=== PATIENT | male | born 1955 | race Hispanic/Latino ===

== ENCOUNTER 2017-10-16 12:13 | Inpatient (IN) | payer OTHER ==
[2017-10-16 12:15] VITALS: BMI 25.1
--- NOTE | 2017-10-16 13:05 | RAD ---
HISTORY: Code Stroke COMPARISON: No prior. FINDINGS: LUNGS: No active pulmonary disease. PLEURA: No significant pleural effusion identified, no pneumothorax apparent. CARDIOVASCULAR: Normal. OSSEOUS STRUCTURES: Degenerative changes. VISUALIZED UPPER ABDOMEN: Normal. OTHER FINDINGS: None. IMPRESSION: No active disease.
--- NOTE | 2017-10-16 13:06 | ED PDOC ---
HPI: Neurologic - General Time Seen by Provider: 10/16/17 12:24 Chief Complaint (Provider): Slurred speech Source: patient, family - History of Present Illness Allergies/Adverse Reactions: Allergies No Known Allergies Allergy (Verified 10/16/17 12:35) Additional Complaint(s): Pt states he had slurred speech for 3-5 seconds while talking on the phone today , resolved spontaneously. Denies MATTHEWS, paresthesias, weakness, visual changes, incontinence. NIHSS Stroke Scale - Date/Time Evaluation Performed When Was NIHSS Performed: Baseline - How Severe is the Stroke Level of Consciousness: 0=Alert LOC to Questions: 0=Both comments correct LOC to commands: 0=Obeys both correctly Best Gaze: 0=Normal Visual: 0=No visual loss Facial: 0=Normal Motor Arm - Left: 0=No drift Motor Leg - Left: 0=No drift Motor Leg - Right: 0=No drift Limb Ataxia: 0=Absent Sensory: 0=Normal Best Language: 0=No aphasia Dysarthia: 0=Normal articulation Extinction & Inattention (Neglect): 0=Normal, no object rTPA Inclusion/Exclusion - Refusal of Treatment Patient Refused Treatment: No - Inclusion Criteria for Altepase Patient is 18 years or Older: Yes The Clinical Diagnosis of Ischemic Stroke That is Causing a Potentially Disabling Neurological Deficit: No Time of Onset is Well Established to be Less Than 270 Minute Before Treatment Would Begin: No Risk/Benefit Discussed With Patient/Family Member Present: No - Warning to TPA With Conditions Condition: Rapid Improvement Past Medical History Reviewed: Nursing Documentation, Vital Signs Vital Signs: Last Vital Signs Temp 97.3 F L 10/16/17 12:15 Pulse 68 10/16/17 12:15 Resp 16 10/16/17 12:15 BP 144/95 H 10/16/17 12:15 Pulse Ox 96 10/16/17 12:15 - Medical History PMH: HTN - Family History Family History: States: Unknown Family Hx - Living Arrangements Living Arrangements: With Family - Social History Current smoker - smoking cessation education provided: No Alcohol: None - Allergies Allergies/Adverse Reactions: Allergies Allergy/AdvReac Type Severity Reaction Status Date / Time No Known Allergies Allergy Verified 10/16/17 12:35 Review of Systems Constitutional: Negative for: Fever Eyes: Negative for: Vision Change Cardiovascular: Negative for: Chest Pain, Palpitations Respiratory: Negative for: Cough, Shortness of Breath Gastrointestinal: Negative for: Nausea, Vomiting, Abdominal Pain, Diarrhea Musculoskeletal: Negative for: Neck Pain Skin: Negative for: Rash, Lesions Neurological: Positive for: Change in Speech. Negative for: Weakness, Numbness , Incoordination, Confusion, Seizures, Altered Mental Status, Headache, Dizziness Physical Exam - Reviewed Nursing Documentation Reviewed: Yes Vital Signs Reviewed: Yes - Physical Exam Appears: Positive for: Well, No Acute Distress Head Exam: Positive for: ATRAUMATIC, NORMAL INSPECTION Skin: Positive for: Normal Color, Warm, Dry Eye Exam: Positive for: Normal appearance, EOMI, PERRL Neck: Positive for: Normal, Painless ROM, Supple Cardiovascular/Chest: Positive for: Regular Rate, Rhythm Respiratory: Positive for: Normal Breath Sounds. Negative for: Rales, Rhonchi, Wheezing Extremity: Positive for: Normal ROM Neurologic/Psych: Positive for: Alert, wage hand II-XII, Oriented, Cerebellar Tests ( WNL). Negative for: Motor/Sensory Deficits, Aphasia, Facial Droop - Laboratory Results Result Diagrams: 10/16/17 13:45 10/16/17 13:45 - ECG O2 Sat by Pulse Oximetry: 96 Medical Decision Making Medical Decision Makin yo with episode of slurred speech. - labs - EKG - CT head - CXR - Neuro consult Accession No. : [id number] Patient Name / ID : TATYANA Vivar / [id number] Exam Date : 10/16/2017 12:56:18 ( Approved ) Study Comment : Sex / Age : M / 62Y Creator : Olegario Carcamo MD Dictator : Olegario Carcamo MD Rug Dyer : Block And Case Maker : Olegario Carcamo MD Approver2 : Report Date : 10/16/2017 13:14:37 My Comment : PROCEDURE: CT HEAD WITHOUT CONTRAST. HISTORY: TIA, slurred speech COMPARISON: None available. TECHNIQUE: Axial computed tomography images were obtained through the head/brain without intravenous contrast. Radiation dose: Total exam DLP = 1077.3 mGy-cm. This CT exam was performed using one or more of the following dose reduction techniques: Automated exposure control, adjustment of the mA and/or kV according to patient size, and/or use of iterative reconstruction technique. FINDINGS: HEMORRHAGE: No intracranial hemorrhage. BRAIN: No mass effect or edema. No atrophy or chronic microvascular ischemic changes. VENTRICLES: Unremarkable. No hydrocephalus. CALVARIUM: Unremarkable. PARANASAL SINUSES: Unremarkable as visualized. No significant inflammatory changes. MASTOID AIR CELLS: Unremarkable as visualized. No inflammatory changes. OTHER FINDINGS: None. IMPRESSION: No acute intracranial pathology.
--- NOTE | 2017-10-16 13:16 | CT ---
PROCEDURE: CT HEAD WITHOUT CONTRAST. HISTORY: TIA, slurred speech COMPARISON: None available. TECHNIQUE: Axial computed tomography images were obtained through the head/brain without intravenous contrast. Radiation dose: Total exam DLP = 1077.3 mGy-cm. This CT exam was performed using one or more of the following dose reduction techniques: Automated exposure control, adjustment of the mA and/or kV according to patient size, and/or use of iterative reconstruction technique. FINDINGS: HEMORRHAGE: No intracranial hemorrhage. BRAIN: No mass effect or edema. No atrophy or chronic microvascular ischemic changes. VENTRICLES: Unremarkable. No hydrocephalus. CALVARIUM: Unremarkable. PARANASAL SINUSES: Unremarkable as visualized. No significant inflammatory changes. MASTOID AIR CELLS: Unremarkable as visualized. No inflammatory changes. OTHER FINDINGS: None. IMPRESSION: No acute intracranial pathology.
[2017-10-16 13:54] LABS: BASO % 0.7 % (0.0-2.0); EOS # 0.1 K/uL (0.0-0.7); EOS % 1.3 % (0.0-4.0); HEMOGLOBIN 16.7 g/dL (12.0-18.0); LYMPH # 0.8 K/uL (1.0-4.3); LYMPH % 12.6 % (20.0-40.0); MEAN CORPUSCULAR HEMOGLOBIN 32.3 pg (27.0-31.0); MEAN CORPUSCULAR HGB CONC 34.4 g/dL (33.0-37.0); MEAN PLATELET VOLUME 8.3 fl (7.2-11.7); MONO # 0.5 K/uL (0.0-0.8); MONO % 8.3 % (0.0-10.0); NEUT # 4.8 K/uL (1.8-7.0); NEUT % 77.1 % (50.0-75.0); NRBC % 0.1 % (0.0-0.0); RBC 5.17 Mil/uL (4.40-5.90); WHITE BLOOD COUNT 6.3 K/uL (4.8-10.8)
[2017-10-16 13:59] LABS: PARTIAL THROMBOPLASTIN TIME 30.9 Seconds (25.6-37.1); PROTHROMBIN TIME 10.9 Seconds (9.8-13.1)
[2017-10-16 14:01] LABS: ALB/GLOB RATIO 1.6 (1.0-2.1); ALBUMIN 4.4 g/dL (3.5-5.0); ALT/SGPT 34 U/L (21-72); AST/SGOT 25 U/L (17-59); BLOOD UREA NITROGEN 19 mg/dl (9-20); CALCIUM 9.8 mg/dL (8.4-10.2); GFR AFRICAN-AMERICAN > 60; GFR NON-AFRICAN AMERICAN > 60; HDL CHOLESTEROL 53 MG/DL (30-70)
[2017-10-16 14:12] LABS: LDL CHOLESTEROL 113 mg/dL (0-129)
--- NOTE | 2017-10-16 16:03 | CP.PCM.HP ---
<SigridLucia - Last Filed: 10/16/17 18:27> History of Present Illness - History of Present Illness History of Present Illness: Mr. Willam Markham is a 62 yo M with a past medical history of hypertension, irritable bowel syndrome, and enlarged prostate who presented to the emergency room following an episode of slurred speech that lasted about 5 seconds, after which his speech returned to normal. He was speaking on the phone when this occurred and was sitting in a chair. He denies any other symptoms occurring at the same time such as headache, vision changes, one sided or bilateral weakness , or paralysis. At the time of the evaluation in the emergency room, he reported feeling tired but otherwise had no complaints. Pt's , present in the room, states that she has noticed that sometimes his hands shake if he hasn't had food in several hours. PMD: Dr. Real Kiran Med hx: hypertension, enlarged prostate (BPH?), irritable bowel syndrome (sees private GI) Surg hx: hernia repair about 7 yrs ago Fam hx: father had possible minor stroke (pt unsure), paternal grandmother from [place] Social hx: never smoker, denies excessive alcohol intake (1 drink w/ dinner or before bed sometimes), denies drug use Medications: losartan 50mg, OTC saw jeanie Allergies: nkda ED course: - CT head - no acute pathology - CXR- no active disease - EKG- sinus bradycardia at 58 bpm - Neuro consult- Dr. Medrano - Aspirin 325 mg - CBC, CMP unremarkable - HbA1c - pending Present on Admission - Present on Admission Any Indicators Present on Admission: No Review of Systems - Constitutional Constitutional: absent: Chills, Headache, Lethargy, Malaise, Night Sweats - EENT Eyes: absent: Blind Spots, Blurred Vision, Change in Vision Ears: absent: Decreased Hearing, Disequilibrium Nose/Mouth/Throat: absent: Dysphagia - Cardiovascular Cardiovascular: absent: Chest Pain, Dyspnea on Exertion, Leg Edema, Lightheadedness - Respiratory Respiratory: absent: Cough, Dyspnea - Gastrointestinal Gastrointestinal: absent: Abdominal Pain, Change in Bowel Habits, Constipation, Diarrhea - Genitourinary Genitourinary: Difficulty Urinating (mild; due to enlarged prostate). absent: Change in Urinary Stream, Dysuria, Urinary Frequency, Urinary Urgency - Musculoskeletal Musculoskeletal: absent: Abnormal Gait, Arthralgias, Muscle Weakness, Myalgias, Numbness, Tingling - Neurological Neurological: Abnormal Speech (5 seconds of slurred speech as per HPI; otherwise negative). absent: Abnormal Gait, Abnormal Hearing, Abnormal Movements, Disequilibrium, Dizziness, Numbness, Focal Weakness, Loss of Vision, Paresthesias, Sensory Deficit - Endocrine Endocrine: absent: Polyphagia, Polyuria Past Patient History - Infectious Disease Hx of Infectious Diseases: None - Tetanus Immunizations Tetanus Immunization: Unknown - Past Medical History & Family History Past Medical History?: Yes Pertinent Family History: father with possible stroke; pt unsure - Past Social History Smoking Status: Never Smoked Alcohol: Occasional Drugs: Denies Home Situation {Lives}: With Family - CARDIAC Hx Cardiac Disorders: Yes Hx Hypertension: Yes - PULMONARY Hx Respiratory Disorders: No - NEUROLOGICAL Hx Neurological Disorder: No - HEENT Hx HEENT Problems: No - RENAL Hx Chronic Kidney Disease: No - ENDOCRINE/METABOLIC Hx Endocrine Disorders: No - HEMATOLOGICAL/ONCOLOGICAL Hx Blood Disorders: No - INTEGUMENTARY Hx Dermatological Problems: No - MUSCULOSKELETAL/RHEUMATOLOGICAL Hx Musculoskeletal Disorders: No - GASTROINTESTINAL Hx Gastrointestinal Disorders: Yes Hx Irritable Bowel: Yes (irritable bowel syndrome) - GENITOURINARY/GYNECOLOGICAL Hx Genitourinary Disorders: Yes Hx Prostate Problems: Yes (enlarged prostate) - PSYCHIATRIC Hx Psychophysiologic Disorder: No - SURGICAL HISTORY Hx Surgeries: Yes Hx Herniorrhaphy: Yes Meds Allergies/Adverse Reactions: Allergies Allergy/AdvReac Type Severity Reaction Status Date / Time No Known Allergies Allergy Verified 10/16/17 12:35 Physical Exam - Constitutional Appears: Non-toxic, No Acute Distress - Head Exam Head Exam: NORMAL INSPECTION - Eye Exam Eye Exam: EOMI, Normal appearance, PERRL - ENT Exam ENT Exam: Mucous Membranes Moist, Normal Exam, Normal Oropharynx - Neck Exam Neck exam: Positive for: Full Rom, Normal Inspection. Negative for: Lymphadenopathy, Tenderness - Respiratory Exam Respiratory Exam: Clear to Auscultation Bilateral, NORMAL BREATHING PATTERN. absent: Wheezes, Respiratory Distress - Cardiovascular Exam Cardiovascular Exam: REGULAR RHYTHM, +S1, +S2 - GI/Abdominal Exam GI & Abdominal Exam: Normal Bowel Sounds, Soft. absent: Mass, Tenderness - Extremities Exam Extremities exam: Negative for: calf tenderness - Back Exam Back exam: NORMAL INSPECTION - Neurological Exam Neurological exam: Alert, CN II-XII Intact (to individual testing), Normal Gait , Oriented x3 Additional comments: no focal motor or sensory neural deficits strength 5/5 in all 4 extremities cerebellar function tests wnl (finger to nose, heel to pisano) - Psychiatric Exam Psychiatric exam: Normal Affect, Normal Mood - Skin Skin Exam: Dry, Intact, Normal Color, Warm Results - Vital Signs Recent Vital Signs: Last Vital Signs Temp 98 F 10/16/17 15:23 Pulse 78 10/16/17 15:23 Resp 18 10/16/17 15:23 BP 116/83 10/16/17 15:23 Pulse Ox 99 10/16/17 15:23 - Labs Result Diagrams: 10/16/17 13:45 10/16/17 13:45 Labs: Laboratory Results - last 24 hr 10/16/17 10/16/17 10/16/17 12:28 13:45 13:45 WBC 6.3 RBC 5.17 Hgb 16.7 Hct 48.6 MCV 94.0 MCH 32.3 H MCHC 34.4 RDW 13.0 Plt Count 191 MPV 8.3 Neut % (Auto) 77.1 H Lymph % (Auto) 12.6 L [place] % (Auto) 8.3 Eos % (Auto) 1.3 Baso % (Auto) 0.7 Neut # (Auto) 4.8 Lymph # (Auto) 0.8 L [place] # (Auto) 0.5 Eos # (Auto) 0.1 Baso # (Auto) 0.0 PT INR APTT Sodium 142 Potassium 4.3 Chloride 99 Carbon Dioxide 29 Anion Gap 18 BUN 19 Creatinine 0.8 Est GFR ( Amer) > 60 Est GFR (Non-Af Amer) > 60 POC Glucose (mg/dL) 116 H Random Glucose 93 Calcium 9.8 Total Bilirubin 2.0 H AST 25 ALT 34 Alkaline Phosphatase 50 Troponin I < 0.0120 Total Protein 7.3 Albumin 4.4 Globulin 2.8 Albumin/Globulin Ratio 1.6 Triglycerides 122 Cholesterol 188 LDL Cholesterol Direct 113 HDL Cholesterol 53 Blood Type Antibody Screen BBK History Checked 10/16/17 10/16/17 13:45 13:45 WBC RBC Hgb Hct MCV MCH MCHC RDW Plt Count MPV Neut % (Auto) Lymph % (Auto) [place] % (Auto) Eos % (Auto) Baso % (Auto) Neut # (Auto) Lymph # (Auto) [place] # (Auto) Eos # (Auto) Baso # (Auto) PT 10.9 INR 1.0 APTT 30.9 Sodium Potassium Chloride Carbon Dioxide Anion Gap BUN Creatinine Est GFR ( Amer) Est GFR (Non-Af Amer) POC Glucose (mg/dL) Random Glucose Calcium Total Bilirubin AST ALT Alkaline Phosphatase Troponin I Total Protein Albumin Globulin Albumin/Globulin Ratio Triglycerides Cholesterol LDL Cholesterol Direct HDL Cholesterol Blood Type B POSITIVE Antibody Screen Negative BBK History Checked No verified bt Assessment & Plan - Assessment and Plan (Free Text) Assessment: 62 yo M with PMH htn, enlarged prostate who is admitted due to transient ischemic attack. Plan: # Transient Ischemic Attack - ABCD2 score 3; low risk but consider neuro consult - Head CT: no acute pathology - Neurology consult: Dr. Medrano - Aspirin 81 mg daily - Lipitor 20 mg daily; restart home med omega-3 # Hypertension - Restart home meds, losartan 50mg daily - Monitor BP # Enlarged prostate - Hold saw palmetto due to increased risk of bleeding and pt receiving lovenox and aspirin while inpt # DVT prophylaxis - Lovenox 40 mg SC daily - Date & Time Date: 10/16/17 Time: 17:00 <Satinder Kiran - Last Filed: 10/17/17 06:50> Results - Vital Signs Recent Vital Signs: Last Vital Signs Temp 97.3 F L 10/17/17 05:00 Pulse 48 L 10/17/17 05:00 Resp 18 10/17/17 05:00 BP 123/78 10/17/17 05:00 Pulse Ox 97 10/17/17 05:00 - Labs Result Diagrams: 10/16/17 13:45 10/16/17 13:45 Labs: Laboratory Results - last 24 hr 10/16/17 10/16/17 10/16/17 12:28 13:45 13:45 WBC 6.3 RBC 5.17 Hgb 16.7 Hct 48.6 MCV 94.0 MCH 32.3 H MCHC 34.4 RDW 13.0 Plt Count 191 MPV 8.3 Neut % (Auto) 77.1 H Lymph % (Auto) 12.6 L [place] % (Auto) 8.3 Eos % (Auto) 1.3 Baso % (Auto) 0.7 Neut # (Auto) 4.8 Lymph # (Auto) 0.8 L [place] # (Auto) 0.5 Eos # (Auto) 0.1 Baso # (Auto) 0.0 PT INR APTT Sodium 142 Potassium 4.3 Chloride 99 Carbon Dioxide 29 Anion Gap 18 BUN 19 Creatinine 0.8 Est GFR ( Amer) > 60 Est GFR (Non-Af Amer) > 60 POC Glucose (mg/dL) 116 H Random Glucose 93 Hemoglobin A1c Calcium 9.8 Total Bilirubin 2.0 H AST 25 ALT 34 Alkaline Phosphatase 50 Troponin I < 0.0120 Total Protein 7.3 Albumin 4.4 Globulin 2.8 Albumin/Globulin Ratio 1.6 Triglycerides 122 Cholesterol 188 LDL Cholesterol Direct 113 HDL Cholesterol 53 Blood Type Blood Type Confirm Antibody Screen BBK History Checked 10/16/17 10/16/17 10/16/17 13:45 13:45 13:45 WBC RBC Hgb Hct MCV MCH MCHC RDW Plt Count MPV Neut % (Auto) Lymph % (Auto) [place] % (Auto) Eos % (Auto) Baso % (Auto) Neut # (Auto) Lymph # (Auto) [place] # (Auto) Eos # (Auto) Baso # (Auto) PT 10.9 INR 1.0 APTT 30.9 Sodium Potassium Chloride Carbon Dioxide Anion Gap BUN Creatinine Est GFR ( Amer) Est GFR (Non-Af Amer) POC Glucose (mg/dL) Random Glucose Hemoglobin A1c 5.4 Calcium Total Bilirubin AST ALT Alkaline Phosphatase Troponin I Total Protein Albumin Globulin Albumin/Globulin Ratio Triglycerides Cholesterol LDL Cholesterol Direct HDL Cholesterol Blood Type B POSITIVE Blood Type Confirm Antibody Screen Negative BBK History Checked No verified bt 10/16/17 14:04 WBC RBC Hgb Hct MCV MCH MCHC RDW Plt Count MPV Neut % (Auto) Lymph % (Auto) [place] % (Auto) Eos % (Auto) Baso % (Auto) Neut # (Auto) Lymph # (Auto) [place] # (Auto) Eos # (Auto) Baso # (Auto) PT INR APTT Sodium Potassium Chloride Carbon Dioxide Anion Gap BUN Creatinine Est GFR ( Amer) Est GFR (Non-Af Amer) POC Glucose (mg/dL) Random Glucose Hemoglobin A1c Calcium Total Bilirubin AST ALT Alkaline Phosphatase Troponin I Total Protein Albumin Globulin Albumin/Globulin Ratio Triglycerides Cholesterol LDL Cholesterol Direct HDL Cholesterol Blood Type Blood Type Confirm B POSITIVE Antibody Screen BBK History Checked Attending/Attestation - Attestation I have personally seen and examined this patient.: Yes I have fully participated in the care of the patient.: Yes I have reviewed all pertinent clinical information: Yes
[2017-10-16] MEDS: Omega-3-Acid Ethyl Esters 1 GM Cap PO SCH (21:57)
[2017-10-17] MEDS ORDERED: Propofol 10 mg/ml Inj (20 ML) ONE (07:20)
[2017-10-17] MEDS ORDERED: Rocuronium 10 mg/ml (5 ml) ONE (07:20)
[2017-10-17] MEDS ORDERED: ePHEDrine 50 mg/ml Inj ONE (07:20)
[2017-10-17] MEDS ORDERED: Lidocaine 2% MPF (5 ml) Inj ONE (07:21)
--- NOTE | 2017-10-17 07:43 | CARD ---
APPROVED REPORT EKG Measurement Heart [id number] CT [id number] <Conclusion> Sinus bradycardia with APCs Possible Left atrial enlargement Borderline ECG
[2017-10-17] MEDS ORDERED: Enoxaparin 40 mg Syringe SC SCH (09:00)
[2017-10-17] MEDS: Omega-3-Acid Ethyl Esters 1 GM Cap PO SCH ×2 (09:44→18:26)
[2017-10-17] MEDS ORDERED: Iodixanol 320 MG/ML 100 ML BOTTLE IV ONE ×2 (10:27→10:47)
[2017-10-17] MEDS ORDERED: Sodium Chloride 0.9% 100 ML ONE (10:28)
--- NOTE | 2017-10-17 11:07 | US ---
PROCEDURE: Duplex ultrasound of the carotid and vertebral arteries. HISTORY: r/o TIA COMPARISON: None available. TECHNIQUE: Grayscale and duplex Doppler evaluation of the cervical carotid and vertebral arteries were performed. The common carotid, carotid bifurcations and cervical ICA and proximal ECA were evaluated. The vertebral arteries were evaluated for gross patency and direction. FINDINGS: RIGHT CAROTID ARTERIES: Common Carotid Artery: Intimal thickening is present Maximal flow velocity of 114.5 cm/s. Carotid Bifurcation: Heterogeneous plaque formation. Internal Carotid Artery:Heterogeneous plaque formation. Maximal flow velocity of 103.2 cm/s. External Carotid Artery (proximal branches): Normal. Maximal flow velocity of 109.7 cm/s. ICA/CCA Ratio: 0.9 LEFT CAROTID ARTERIES: Common Carotid Artery: Intimal thickening is present Maximal flow velocity of 137.4 cm/s. Carotid Bifurcation: Heterogeneous plaque formation. Internal Carotid Artery:Heterogeneous plaque formation. Maximal flow velocity of 71.3 cm/s. External Carotid Artery (proximal branches): Normal. Maximal flow velocity of 125.0 cm/s. ICA/CCA Ratio: 0.6 VERTEBRAL ARTERIES: Right Vertebral Artery: Patent. Antegrade flow. Left Vertebral Artery: Patent. Antegrade flow. OTHER FINDINGS: None. IMPRESSION: Right ICA degree of stenosis: Less than 50% Left ICA degree of stenosis: Less than 50% Reference Internal Carotid Artery (ICA) Peak Systolic Velocity (PSV) for above: 1. Less than 50% stenosis less than 125 cm/s peak systolic velocity 2. 50-69% stenosis 125-230cm/s peak systolic velocity 3. Greater than 70% but less than near occlusion greater than 230 cm/s peak systolic velocity
--- NOTE | 2017-10-17 12:39 | CT ---
PROCEDURE: CT Angiography of the Brain. HISTORY: r/o TIA COMPARISON: None available. TECHNIQUE: CT angiography of the intracranial and cervical arteries was performed. Coronal and sagittal maximum intensity projection reformated images were generated. Contrast Dose: Visipaque 320, 100 cc Radiation dose:Total exam DLP = 1406.08 mGy-cm. This CT exam was performed using one or more of the following dose reduction techniques: Automated exposure control, adjustment of the mA and/or kV according to patient size, and/or use of iterative reconstruction technique. FINDINGS: INTERNAL CEREBRAL ARTERIES: Unremarkable. The skull base, petrous, cavernous and supraclinoid segments are bilaterally widely patent. ANTERIOR CEREBRAL ARTERIES: Unremarkable. A1 and A2 segments are widely patent. Smaller distal branches unremarkable, as visualized. MIDDLE CEREBRAL ARTERIES: Unremarkable. M1 and M2 segments are widely patent. Perisylvian branches grossly symmetric. POSTERIOR CIRCULATION: Basilar Artery: Unremarkable. Distal Vertebral Arteries: Unremarkable. Left dominant vertebrobasilar circulation. Posterior Cerebral Arteries: Unremarkable. Posterior Inferior Cerebellar Arteries: Unremarkable. NECK CTA: Common Carotid arteries: The bilateral common carotid appear widely patent from their origins to their bifurcations with no significant stenosis appreciated. No evidence to suggest common carotid artery dissection. Internal Carotid arteries: No significant stenosis is appreciated throughout the cervical internal carotid artery segments bilaterally and there is no evidence of dissection either. Prominent ectasis is appreciated at the distal bilateral internal auditory canals. External Carotid arteries: Appear unremarkable bilaterally. Vertebral arteries: The bilateral vertebral arteries appear normal in caliber from their origins to their junction with the basilar artery. No significant stenosis or definite pattern of dissection. ANEURYSM/ VASCULAR MALFORMATIONS: None. OTHER FINDINGS: None. IMPRESSION: Unremarkable CT Angiography of the Brain.
--- NOTE | 2017-10-17 14:14 | CP.PCM.PN ---
Objective - Vital Signs/Intake and Output Vital Signs (last 24 hours): Temp Pulse Resp BP Pulse Ox 97.6 F 53 L 20 121/82 99 10/17/17 13:00 10/17/17 13:00 10/17/17 13:00 10/17/17 13:00 10/17/17 13:00 - Medications Medications: Current Medications Aspirin (Ecotrin) 81 mg PO DAILY [facility] Last Admin: 10/17/17 09:45 Dose: 81 mg Atorvastatin Calcium (Lipitor) 20 mg PO HS [facility] Last Admin: 10/16/17 21:57 Dose: 20 mg Enoxaparin Sodium (Lovenox) 40 mg SC DAILY [facility] PRN Reason: Protocol Last Admin: 10/17/17 09:45 Dose: Not Given Losartan Potassium (Cozaar) 50 mg PO DAILY [facility] Last Admin: 10/17/17 09:44 Dose: 50 mg [id number] Ethyl Esters (Lovaza) 1 gm PO BID [facility] Last Admin: 10/17/17 09:44 Dose: 1 gm - Labs Labs: 10/16/17 13:45 10/16/17 13:45 PT 10.9 Seconds (9.8-13.1) 10/16/17 13:45 INR 1.0 (0.9-1.2) 10/16/17 13:45 APTT 30.9 Seconds (25.6-37.1) 10/16/17 13:45
[2017-10-17 16:44] VITALS: BP 107/67; PULSE 54; RESP 16; TEMP 97.7; O2SAT 96
--- NOTE | 2017-10-17 18:21 | CP.PCM.DIS ---
Provider - Provider Date of Admission: 10/16/17 14:05 Attending physician: Satinder Kiran MD Primary care physician: Dr. Real Kiran Consults: Neurology- Dr. Medrano Time Spent in preparation of Discharge (in minutes): 45 Diagnosis - Discharge Diagnosis (1) TIA (transient ischemic attack) Status: Acute Comment: TIA presenting as 5 seconds of slurred speech; spontaneously resolved. CT head, carotid u/s, head/neck CTA - no acute findings. Cleared by neurologist Dr. Medrano. Seen by PT, OT, and IRON POURER - cleared to go home. Hospital Course - Lab Results Lab Results: Most Recent Lab Values WBC 6.3 K/uL (4.8-10.8) 10/16/17 13:45 RBC 5.17 Mil/uL (4.40-5.90) 10/16/17 13:45 Hgb 16.7 g/dL (12.0-18.0) 10/16/17 13:45 Hct 48.6 % (35.0-51.0) 10/16/17 13:45 MCV 94.0 fl (80.0-94.0) 10/16/17 13:45 MCH 32.3 pg (27.0-31.0) H 10/16/17 13:45 MCHC 34.4 g/dL (33.0-37.0) 10/16/17 13:45 RDW 13.0 % (11.5-14.5) 10/16/17 13:45 Plt Count 191 K/uL (130-400) 10/16/17 13:45 MPV 8.3 fl (7.2-11.7) 10/16/17 13:45 Neut % (Auto) 77.1 % (50.0-75.0) H 10/16/17 13:45 Lymph % (Auto) 12.6 % (20.0-40.0) L 10/16/17 13:45 [place] % (Auto) 8.3 % (0.0-10.0) 10/16/17 13:45 Eos % (Auto) 1.3 % (0.0-4.0) 10/16/17 13:45 Baso % (Auto) 0.7 % (0.0-2.0) 10/16/17 13:45 Neut # (Auto) 4.8 K/uL (1.8-7.0) 10/16/17 13:45 Lymph # (Auto) 0.8 K/uL (1.0-4.3) L 10/16/17 13:45 [place] # (Auto) 0.5 K/uL (0.0-0.8) 10/16/17 13:45 Eos # (Auto) 0.1 K/uL (0.0-0.7) 10/16/17 13:45 Baso # (Auto) 0.0 K/uL (0.0-0.2) 10/16/17 13:45 PT 10.9 Seconds (9.8-13.1) 10/16/17 13:45 INR 1.0 (0.9-1.2) 10/16/17 13:45 APTT 30.9 Seconds (25.6-37.1) 10/16/17 13:45 Sodium 142 mmol/l (132-148) 10/16/17 13:45 Potassium 4.3 MMOL/L (3.6-5.0) 10/16/17 13:45 Chloride 99 mmol/L (98-107) 10/16/17 13:45 Carbon Dioxide 29 mmol/L (22-30) 10/16/17 13:45 Anion Gap 18 (10-20) 10/16/17 13:45 BUN 19 mg/dl (9-20) 10/16/17 13:45 Creatinine 0.8 mg/dl (0.8-1.5) 10/16/17 13:45 Est GFR ( Amer) > 60 10/16/17 13:45 Est GFR (Non-Af Amer) > 60 10/16/17 13:45 POC Glucose (mg/dL) 116 mg/dL (65-110) H 10/16/17 12:28 Random Glucose 93 mg/dL (75-110) 10/16/17 13:45 Hemoglobin A1c 5.4 % (4.2-6.5) 10/16/17 13:45 Calcium 9.8 mg/dL (8.4-10.2) 10/16/17 13:45 Total Bilirubin 2.0 mg/dl (0.2-1.3) H 10/16/17 13:45 AST 25 U/L (17-59) 10/16/17 13:45 ALT 34 U/L (21-72) 10/16/17 13:45 Alkaline Phosphatase 50 U/L (38-126) 10/16/17 13:45 Troponin I < 0.0120 ng/mL (0.00-0.120) 10/16/17 13:45 Total Protein 7.3 G/DL (6.3-8.2) 10/16/17 13:45 Albumin 4.4 g/dL (3.5-5.0) 10/16/17 13:45 Globulin 2.8 gm/dL (2.2-3.9) 10/16/17 13:45 Albumin/Globulin Ratio 1.6 (1.0-2.1) 10/16/17 13:45 Triglycerides 122 mg/DL (0-149) 10/16/17 13:45 Cholesterol 188 mg/dL (0-199) 10/16/17 13:45 LDL Cholesterol Direct 113 mg/dL (0-129) 10/16/17 13:45 HDL Cholesterol 53 MG/DL (30-70) 10/16/17 13:45 Vitamin B12 201 pg/mL (239-931) L 10/17/17 09:43 25-OH Vitamin D Total 25.8 NG/ML (30.0-100.0) L 10/17/17 09:31 Blood Type B POSITIVE 10/16/17 13:45 Blood Type Confirm B POSITIVE 10/16/17 14:04 Antibody Screen Negative 10/16/17 13:45 BBK History Checked No verified bt 10/16/17 13:45 - Hospital Course Hospital Course: 62 yo M with pmh hypertension admitted due to TIA consisting of 5 seconds of slurred speech which resolved spontaneously. No focal deficits on neuro exam in the ED, and when pt was evaluated at bedside this am. Neurology consult- Dr. Mitchell Carpenter pt had neuro workup consisting of carotid u/s (less than 50% stenosis bilaterally), CTA neck/head (no acute findings, normal examination). Spoke to Dr. Cuevas pt cleared. He was also evaluated by physical therapy, occupational therapy, and speech language pathology and was recommended discharge to home by all three services. He is at his baseline level and is stable for discharge. He will be discharged with a prescription for aspirin 81mg, and atorvastatin 20mg. He should follow up with his PMD in 1 week; he should also follow up with a neurologist. Information for Dr. Medrano provided upon discharge, but pt can discuss neuro referral with his PMD as well. Discharge Exam - Head Exam Head Exam: NORMAL INSPECTION - Eye Exam Eye Exam: EOMI, Normal appearance Pupil Exam: PERRL - ENT Exam ENT Exam: Mucous Membranes Moist - Respiratory Exam Respiratory Exam: Clear to PA & Lateral, NORMAL BREATHING PATTERN, UNREMARKABLE - Cardiovascular Exam Cardiovascular Exam: REGULAR RHYTHM, +S1, +S2 - GI/Abdominal Exam GI & Abdominal Exam: Normal Bowel Sounds, Soft - Extremities Exam Extremities exam: normal inspection - Back Exam Back exam: NORMAL INSPECTION - Neurological Exam Neurological exam: Alert, Normal Gait - Psychiatric Exam Psychiatric exam: Normal Affect, Normal Mood - Skin Skin Exam: Dry, Intact, Normal Color, Warm Discharge Plan - Discharge Medications Prescriptions: Aspirin [Ecotrin] 81 mg PO DAILY #30 tabec Atorvastatin [Lipitor] 20 mg PO HS #30 tab - Follow Up Plan Condition: GOOD Disposition: HOME/ ROUTINE Patient education suggested?: Yes Instructions: Transient Ischemic Attack (DC) Additional Instructions: Please follow up with your PMD Dr. Kiran in 1 week. Please resume your hypertensive medication; also fill new prescriptions for aspirin 81mg daily and atorvastatin 20mg daily. You should follow up with a neurologist (you were evaluated by Dr. Medrano while admitted), as well- please discuss this with your PMD at followup visit.. Referrals: Satinder Kiran MD [Family Provider] - Agustina Medrano MD [Medical Doctor] -
--- NOTE | 2017-10-18 10:31 | CARD ---
APPROVED REPORT EXAM: Two-dimensional and M-mode echocardiogram with Doppler and color Doppler. Other Information Quality : GoodRhythm : NSR INDICATION CVA/TIA 2D DIMENSIONS IVSd1.21 (0.7-1.1cm)LVDd4.74 (3.9-5.9cm) LVOT Diameter2.29 (1.8-2.4cm)PWd0.88 (0.7-1.1cm) IVSs1.66 (0.8-1.2cm)LVDs2.68 (2.5-4.0cm) FS (%) 43.6 %PWs1.61 (0.8-1.2cm) M-Mode DIMENSIONS Left Atrium (MM)4.88 (2.5-4.0cm)IVSd1.29 (0.7-1.1cm) Aortic Root3.35 (2.2-3.7cm)LVDd5.21 (4.0-5.6cm) Aortic Cusp Exc.2.47 (1.5-2.0cm)PWd1.56 (0.7-1.1cm) IVSs2.09 cmFS (%) 47 % LVDs2.76 (2.0-3.8cm)PWs1.79 cm Aortic Valve AI P 1/2 [id number] Mitral Valve E/A ratio0.0 TDI E/Lateral E'0.0E/Medial E'0.0 Pulmonary Valve PV Peak [id number]/s LEFT VENTRICLE The left ventricle is normal size. There is mild to moderate concentric left ventricular hypertrophy. Left ventricle systolic function is normal. The Ejection Fraction is 65-70%. There is normal LV segmental wall motion. Transmitral Doppler flow pattern is Grade I-abnormal relaxation pattern. RIGHT VENTRICLE The right ventricle is normal size. There is normal right ventricular wall thickness. The right ventricular systolic function is normal. ATRIA The left atrium is mildly dilated. The right atrium size is normal. AORTIC VALVE The aortic valve is normal in structure. There is moderate to severe aortic regurgitation. There is no aortic valvular stenosis. MITRAL VALVE The mitral valve is normal in structure. There is no evidence of mitral valve prolapse. There is no mitral valve stenosis. There is no mitral valve regurgitation noted. TRICUSPID VALVE The tricuspid valve is normal in structure. There is no tricuspid valve regurgitation noted. PULMONIC VALVE The pulmonary valve is normal in structure. There is no pulmonic valvular regurgitation. GREAT VESSELS The aortic root is normal in size. The IVC is normal in size and collapses >50% with inspiration. PERICARDIAL EFFUSION The pericardium appears normal. <Conclusion> The left ventricle is normal size. There is mild to moderate concentric left ventricular hypertrophy. There is normal LV segmental wall motion. Left ventricle systolic function is normal. The Ejection Fraction is 65-70%. Transmitral Doppler flow pattern is Grade I-abnormal relaxation pattern. There is moderate to severe aortic regurgitation.
== END 2017-10-17 18:48 | disposition home or self-care (01) | DRG 69 ==
LOC: H.ER 12:13 → H.ERHOLD 14:05 → H.TEL 17:58
PROVIDERS: ADMIT Family Medicine; ATTEND Family Medicine
DX: G45.9 Transient cerebral ischemic attack, unspecified (principal); I10 Essential (primary) hypertension; K58.9 Irritable bowel syndrome, unspecified; N40.0 Benign prostatic hyperplasia without lower urinary tract symptoms